=== PATIENT | male | born 1965 | race Caucasian/White ===

== ENCOUNTER 2016-12-20 03:34 | Emergency (ER) | payer SELFPAY ==
[2016-12-20 03:58] VITALS: BMI 28.8
--- NOTE | 2016-12-20 04:18 | PDOC ---
History of Present Illness - General History Source: Patient Exam Limitations: No Limitations - History of Present Illness Initial Comments: 12/20/16 05:03 The patient is a 51-year-old male with a significant past medical history of HTN , and presents to the emergency department with abdominal pain since 10pm last night. He reports the pain is located in the right upper quadrant, and non- radiating. He also reports feeling bloated. He states he has never experienced this type of pain before. He reports he took two laxatives earlier for constipation before the pain started. The patient denies chest pain, shortness of breath, headache and dizziness. The patient denies fever, chills, nausea, vomit, diarrhea. The patient denies dysuria, frequency, urgency and hematuria. Allergies: penicillins Past Surgical History: None reported Social History: former alcohol use <Ambar Gonzalez - Last Filed: 12/20/16 05:03> <Mili Robert - Last Filed: 12/20/16 22:54> - General Chief Complaint: Pain, Acute Stated Complaint: ABDOMINAL PAIN Time Seen by Provider: 12/20/16 04:11 Past History <Ambar Gonzalez - Last Filed: 12/20/16 05:03> - Psycho/Social/Smoking Cessation Hx Suicidal Ideation: No Smoking History: Never smoked Have you smoked in the past 12 months: No Information on smoking cessation initiated: No Hx Alcohol Use: No Drug/Substance Use Hx: No <Mili Robert - Last Filed: 12/20/16 22:54> - Past Medical History Allergies/Adverse Reactions: Allergies Allergy/AdvReac Type Severity Reaction Status Date / Time Penicillins Allergy Verified 12/20/16 03:48 Home Medications: Ambulatory Orders NK [No Known Home Medication] 12/20/16 Review of Systems - Review of Systems Able to Perform ROS?: Yes Comments:: 12/20/16 05:03 CONSTITUTIONAL: Absent: fever, chills, diaphoresis, generalized weakness, malaise, loss of appetite HEENT: Absent: rhinorrhea, nasal congestion, throat pain, throat swelling, difficulty swallowing, mouth swelling, ear pain, eye pain, visual changes CARDIOVASCULAR: Absent: chest pain, syncope, palpitations, irregular heart rate, lightheadedness , peripheral edema RESPIRATORY: Absent: cough, shortness of breath, dyspnea with exertion, orthopnea, wheezing, stridor, hemoptysis GASTROINTESTINAL: Present: (+) abdominal pain, (+) constipation Absent: abdominal distension, nausea, vomiting, diarrhea, melena, hematochezia GENITOURINARY: Absent: dysuria, frequency, urgency, hesitancy, hematuria, flank pain, genital pain MUSCULOSKELETAL: Absent: myalgia, arthralgia, joint swelling SKIN: Absent: rash, itching, pallor HEMATOLOGIC/IMMUNOLOGIC: Absent: easy bleeding, easy bruising, lymphadenopathy, frequent infections ENDOCRINE: Absent: unexplained weight gain, unexplained weight loss, heat intolerance, cold intolerance NEUROLOGIC: Absent: headache, focal weakness or paresthesias, dizziness, unsteady gait, seizure, mental status changes, bladder or bowel incontinence PSYCHIATRIC: Absent: anxiety, depression, suicidal or homicidal ideation, hallucinations. <Ambar Gonzalez - Last Filed: 12/20/16 05:03> *Physical Exam - Vital Signs Last Vital Signs Temp Pulse Resp BP Pulse Ox 98.0 F 82 20 138/84 98 12/20/16 03:48 12/20/16 03:48 12/20/16 03:48 12/20/16 03:48 12/20/16 03:48 - Physical Exam Comments: 12/20/16 05:04 GENERAL: Well developed, well nourished. Awake and alert. No acute distress. HEENT: Normocephalic, atraumatic. PERRLA, EOMI. No conjunctival pallor. Sclera are non- icteric. Moist mucous membranes. Oropharynx is clear. NECK: Supple. Full ROM. No JVD. Carotid pulses 2+ and symmetric, without bruits. No thyromegaly. No lymphadenopathy. CARDIOVASCULAR: Regular rate and rhythm. No murmurs, rubs, or gallops. Distal pulses are 2+ and symmetric. PULMONARY: No evidence of respiratory distress. Lungs clear to auscultation bilaterally. No wheezing, rales or rhonchi. ABDOMINAL: (+) Some tenderness in the right upper quadrant. No rebound or guarding. Soft. Non-distended. No organomegaly. Normoactive bowel sounds. MUSCULOSKELETAL Normal range of motion at all joints. No bony deformities or tenderness. No CVA tenderness. EXTREMITIES: No cyanosis. No clubbing. No edema. No calf tenderness. SKIN: Warm and dry. Normal capillary refill. No rashes. No jaundice. NEUROLOGICAL: Alert, awake, appropriate. Cranial nerves 2-12 intact. No deficits to light touch and temperature in face, upper extremities and lower extremities. No motor deficits in the in face, upper extremities and lower extremities. Normoreflexic in the upper and lower extremities. Normal speech. Toes are down- going bilaterally. Gait is normal without ataxia PSYCHIATRIC: Cooperative. Good eye contact. Appropriate mood and affect. <Ambar Gonzalez - Last Filed: 12/20/16 05:03> - Vital Signs Last Vital Signs Temp Pulse Resp BP Pulse Ox 98.0 F 82 20 138/84 98 12/20/16 03:48 12/20/16 03:48 12/20/16 03:48 12/20/16 03:48 12/20/16 03:48 <Mili Robert - Last Filed: 12/20/16 22:54> ED Treatment Course - LABORATORY CBC & Chemistry Diagram: 12/20/16 04:30 12/20/16 04:30 - ADDITIONAL ORDERS Additional order review: Laboratory Results 12/20/16 04:30 Urine Color Ltyellow Urine Appearance Clear Urine pH 7.0 Urine Protein Negative Urine Glucose (UA) Negative Urine Ketones Negative Urine Blood Negative Urine Nitrite Negative Urine Bilirubin Negative Urine Urobilinogen Negative Ur Leukocyte Esterase Negative 12/20/16 04:30 RBC 4.66 MCV 90.4 MCHC 33.6 RDW 12.8 MPV 12.6 H Neutrophils % 58.9 Lymphocytes % 33.7 Monocytes % 5.6 Eosinophils % 1.0 Basophils % 0.8 - Medications Given in the ED: ED Medications Discontinued Medications Generic Name Dose Route Start Last Admin Trade Name Yangq PRN Reason Stop Dose Admin Acetaminophen 1,000 mg 12/20/16 04:25 12/20/16 04:40 Ofirmev Injection - IVPB 12/20/16 04:26 1,000 mg ONCE ONE Administration Sodium Chloride 1,000 ml 12/20/16 04:25 12/20/16 04:40 Normal Saline - IV 12/20/16 04:26 1,000 ml ONCE ONE Administration <Ambar Gonzalez - Last Filed: 12/20/16 05:03> - LABORATORY CBC & Chemistry Diagram: 12/20/16 04:30 12/20/16 04:30 <Mili Robert - Last Filed: 12/20/16 22:54> Medical Decision Making - Medical Decision Making 12/20/16 05:16 Pt comes with constipation and RUQ pain; he has no fever. He has no PMHx. He denies past surgeries or GB stones or GB problems. Pt has normal CBC and normal UA. Chem pending. On exam pt's pain is limited to the RUQ; rest of exam is normal. Pt will be sent for a sonogram of his RUQ to r/o cholecystits and GB sudge 12/20/16 06:10 Pt's chemistires are normal; LFTs are normal also 12/20/16 07:23 Pt will besigned out to the day ER doc, who will follow the RUQ US this AM. If normal, pt may follow with GI outpatient. <Mili Robert - Last Filed: 12/20/16 22:54> *DC/Admit/Observation/Transfer - Attestations Scribe Attestion: 12/20/16 05:04 Documentation prepared by Ambar Gonzalez, acting as medical assisting program director for Mili Robert MD. <Ambar Gonzalez - Last Filed: 12/20/16 05:03> <Mili Robert - Last Filed: 12/20/16 22:54> Diagnosis at time of Disposition: Cholelithiasis, RUQ pain - Discharge Dispostion Disposition: HOME Condition at time of disposition: Stable - Patient Instructions Printed Discharge Instructions: DI for Gallstones Additional Instructions: You have gallstones but no inflammation or infection of the gallbladder. You may take ibuprofen 600-800 mg every 6-8 hours as needed for the pain. Please do not eat fatty foods as this may exacerbate your symptoms. Please follow-up with your primary care physician within one week and return to the emergency department if your symptoms persist, worsen, or new symptoms arise. Print Language: BURKINAN
[2016-12-20] MEDS ORDERED: ACETAMINOPHEN 1000 MG/100 ML VIAL (NON FORMULARY) IVPB ONE (04:25)
[2016-12-20] MEDS ORDERED: SODIUM CHLORIDE 0.9% 500 ML INFUS.BAG IV ONE (04:25)
[2016-12-20] MEDS ORDERED: ACETAMINOPHEN INJECTION 100 ML IVPB ONE (04:27)
[2016-12-20 04:50] LABS: BASOPHIL 0.8 % (0-2.0); MCH 30.4 pg (25.7-33.7); MCHC 33.6 g/dl (32.0-35.9); MEAN CELL VOLUME 90.4 fl (80-96); MEAN PLT VOLUME 12.6 fl (7.5-11.1); NEUTROPHILS 58.9 % (42.8-82.8); PLATELET COUNT 151 K/MM3 (134-434); RDW 12.8 % (11.9-15.9); WHITE BLOOD COUNT 8.9 K/mm3 (4.0-10.0)
[2016-12-20 04:52] LABS: URINE APPEARANCE CLEAR; URINE BILIRUBIN NEGATIVE (NEGATIVE); URINE BLOOD NEGATIVE (NEGATIVE); URINE COLOR LTYELLOW; URINE GLUCOSE (UA) NEGATIVE (NEGATIVE); URINE KETONE NEGATIVE (NEGATIVE); URINE LEUK ESTERASE NEGATIVE (NEGATIVE); URINE NITRITE NEGATIVE (NEGATIVE); URINE PROTEIN NEGATIVE (NEGATIVE); URINE UROBILINOGEN NEGATIVE E.U./dl (0.2-1.0)
[2016-12-20 05:39] LABS: ALBUMIN 4.2 g/dl (3.4-5.0); ALK PHOS 86 U/L (45-117); AMYLASE 72 U/L (25-115); ANION GAP 13 (8-16); BILIRUBIN,TOTAL 0.5 mg/dL (0.2-1.0); CALCIUM 9.4 mg/dL (8.5-10.1); CO2 29 mmol/L (21-32); COCKROFT - GAULT 86.93; CREATININE 1.2 mg/dL (0.7-1.3); GLUCOSE,RANDOM 153 mg/dL (74-106); SGOT/AST 33 U/L (15-37); SGPT/ALT 73 U/L (12-78); TOT PROT 7.7 g/dl (6.4-8.2)
[2016-12-20] MEDS ORDERED: KETOROLAC TROMETHAMINE 30 MG/1 ML VIAL IVPUSH ONE (06:11)
[2016-12-20] MEDS ORDERED: KETOROLAC TROMETHAMINE 30 MG/1 ML VIAL ONE (06:14)
[2016-12-20 07:21] LABS: PLATELET ESTIMATE ADEQUATE (NORMAL)
--- NOTE | 2016-12-20 09:28 | PDOC ---
*Physical Exam - Vital Signs Last Vital Signs Temp Pulse Resp BP Pulse Ox 98.0 F 82 20 138/84 98 12/20/16 03:48 12/20/16 03:48 12/20/16 03:48 12/20/16 03:48 12/20/16 03:48 ED Treatment Course - LABORATORY CBC & Chemistry Diagram: 12/20/16 04:30 12/20/16 04:30 - ADDITIONAL ORDERS Additional order review: Laboratory Results 12/20/16 12/20/16 04:30 04:30 Sodium 138 Potassium 3.7 Chloride 97 L Carbon Dioxide 29 Anion Gap 13 BUN 19 H Creatinine 1.2 Creat Clearance w eGFR > 60 Random Glucose 153 H Calcium 9.4 Total Bilirubin 0.5 AST 33 ALT 73 Alkaline Phosphatase 86 Total Protein 7.7 Albumin 4.2 Total Amylase 72 Lipase 178 Urine Color Ltyellow Urine Appearance Clear Urine pH 7.0 Urine Protein Negative Urine Glucose (UA) Negative Urine Ketones Negative Urine Blood Negative Urine Nitrite Negative Urine Bilirubin Negative Urine Urobilinogen Negative Ur Leukocyte Esterase Negative 12/20/16 04:30 RBC 4.66 MCV 90.4 MCHC 33.6 RDW 12.8 MPV 12.6 H Neutrophils % 58.9 Lymphocytes % 33.7 Monocytes % 5.6 Eosinophils % 1.0 Basophils % 0.8 - Medications Given in the ED: ED Medications Discontinued Medications Generic Name Dose Route Start Last Admin Trade Name Freq PRN Reason Stop Dose Admin Acetaminophen 1,000 mg 12/20/16 04:25 12/20/16 04:40 Ofirmev Injection - IVPB 12/20/16 04:26 1,000 mg ONCE ONE Administration Ketorolac Tromethamine 30 mg 12/20/16 06:11 12/20/16 06:18 Toradol Injection - IVPUSH 12/20/16 06:12 30 mg ONCE ONE Administration Sodium Chloride 1,000 ml 12/20/16 04:25 12/20/16 04:40 Normal Saline - IV 12/20/16 04:26 1,000 ml ONCE ONE Administration Progress Note - Progress Note Progress Note: This patient was endorsed to me at [address] Poole pending right upper quadrant ultrasound that shows cholelithiasis but no acute cholecystitis or gallbladder wall thickening. I have reevaluated the patient at this time and he is feeling improved and has no abdominal pain at this time. I've explained to the patient that he should follow-up with his primary care physician within one week and return to the emergency department if his symptoms persist, worsen, or new symptoms arise. *DC/Admit/Observation/Transfer Diagnosis at time of Disposition: Cholelithiasis, Right upper quadrant abdominal pain - Discharge Dispostion Disposition: HOME Condition at time of disposition: Stable Admit: No - Patient Instructions Printed Discharge Instructions: DI for Gallstones Additional Instructions: You have gallstones but no inflammation or infection of the gallbladder. You may take ibuprofen 600-800 mg every 6-8 hours as needed for the pain. Please do not eat fatty foods as this may exacerbate your symptoms. Please follow-up with your primary care physician within one week and return to the emergency department if your symptoms persist, worsen, or new symptoms arise. Print Language: SYRIAC
[2016-12-20 09:42] VITALS: BP 124/79; PULSE 70; TEMP 98.3
== END 2016-12-20 09:42 | disposition home or self-care (01) ==
LOC: JER 03:34
PROC: 3E0333Z Introduction of Anti-inflammatory into Peripheral Vein, Percutaneous Approach (ICD-10-PCS; principal; 2016-12-20)
DX: K80.20 Calculus of gallbladder without cholecystitis without obstruction (principal)
CPT/HCPCS: 36415; 71020-TC; 74020-TC; 76705-TC; 80053; 81003; 82150; 83690; 85025; 99283-25

== ENCOUNTER 2017-09-11 22:18 | Inpatient (IN) | payer OTHER ==
--- NOTE | 2017-09-11 23:22 | PDOC ---
History of Present Illness - General History Source: Patient Exam Limitations: No Limitations - History of Present Illness Initial Comments: 09/11/17 23:46 The patient is a 52 year old male, with a significant past medical history of gallstones, who presents to the emergency department with, 9.5 hours of right upper quadrant pain. He describes the pain as constant and non resolving. The patient reports similar symptoms before. He reports his last flare up was 2 weeks ago ,however, he did not see a surgeon. He denies any recent fevers, chills, headache or dizziness. He denies any recent nausea, vomit, diarrhea or constipation. He denies any recent chest pain or shortness of breath. He denies any recent dysuria, frequency, urgency or hematuria. Allergies: NKA <Montana Ayala - Last Filed: 09/11/17 23:46> <Michell Baird - Last Filed: 09/12/17 20:54> <Mili Robert - Last Filed: 09/13/17 03:38> - General Chief Complaint: Pain Stated Complaint: UPPER ABDOMINAL PAIN Time Seen by Provider: 09/11/17 23:19 Past History <Montana Ayala - Last Filed: 09/11/17 23:46> - Past Medical History COPD: No HTN: Yes - Suicide/Smoking/Psychosocial Hx Smoking History: Never smoked Have you smoked in the past 12 months: No Information on smoking cessation initiated: No Hx Alcohol Use: No Drug/Substance Use Hx: No Substance Use Type: None <Michell Baird - Last Filed: 09/12/17 20:54> <Mili Robert - Last Filed: 09/13/17 03:38> - Past Medical History Allergies/Adverse Reactions: Allergies Allergy/AdvReac Type Severity Reaction Status Date / Time No Known Allergies Allergy Verified 09/11/17 22:32 Home Medications: Ambulatory Orders Amoxicillin/Potassium Clav [Augmentin 875-125 Tablet] 1 each PO Q12H #11 tablet 09/12/17 Hydrochlorothiazide 25 mg PO DAILY 09/12/17 Review of Systems - Review of Systems Able to Perform ROS?: Yes Comments:: 09/11/17 23:40 GENERAL/CONSTITUTIONAL: No fever or chills. No weakness. HEAD, EYES, EARS, NOSE AND THROAT: No change in vision. No ear pain or discharge. No sore throat. CARDIOVASCULAR: No chest pain or shortness of breath. RESPIRATORY: No cough, wheezing, or hemoptysis. GASTROINTESTINAL: +Right upper quadrant pain. No nausea, vomiting, diarrhea or constipation. GENITOURINARY: No dysuria, frequency, or change in urination. MUSCULOSKELETAL: No joint or muscle swelling or pain. No neck or back pain. SKIN: No rash NEUROLOGIC: No headache, vertigo, loss of consciousness, or change in strength/ sensation. ENDOCRINE: No increased thirst. No abnormal weight change. HEMATOLOGIC/LYMPHATIC: No anemia, easy bleeding, or history of blood clots. ALLERGIC/IMMUNOLOGIC: No hives or skin allergy. All Other Systems: Reviewed and Negative <Montana Ayala - Last Filed: 09/11/17 23:46> *Physical Exam - Vital Signs Last Vital Signs Temp Pulse Resp BP Pulse Ox 98.0 F 60 18 151/89 99 09/11/17 22:32 09/11/17 22:32 09/11/17 22:32 09/11/17 22:32 09/11/17 22:32 <Montana Ayala - Last Filed: 09/11/17 23:46> - Vital Signs Last Vital Signs Temp Pulse Resp BP Pulse Ox 98.0 F 60 18 151/89 99 09/11/17 22:32 09/11/17 22:32 09/11/17 22:32 09/11/17 22:32 09/11/17 22:32 - Physical Exam Comments: GENERAL: Awake, alert, and fully oriented, in no acute distress HEAD: No signs of trauma EYES: PERRLA, EOMI, sclera anicteric, conjunctiva clear ENT: Auricles normal inspection, hearing grossly normal, nares patent, oropharynx clear without exudates. Moist mucosa NECK: Normal ROM, supple, no lymphadenopathy, JVD, or masses LUNGS: Breath sounds equal, clear to auscultation bilaterally. No wheezes, and no crackles HEART: Regular rate and rhythm, normal S1 and S2, no murmurs, rubs or gallops ABDOMEN: Soft, +RUQ tenderness, normoactive bowel sounds. +Guarding, no rebound. No masses EXTREMITIES: Normal range of motion, no edema. No clubbing or cyanosis. No cords, erythema, or tenderness NEUROLOGICAL: Cranial nerves II through XII grossly intact. Normal speech, normal gait SKIN: Warm, Dry, normal turgor, no rashes or lesions noted. <Michell Baird - Last Filed: 09/12/17 20:54> - Vital Signs Last Vital Signs Temp Pulse Resp BP Pulse Ox 98.0 F 60 18 151/89 99 09/11/17 22:32 09/11/17 22:32 09/11/17 22:32 09/11/17 22:32 09/11/17 22:32 <Mili Robert - Last Filed: 09/13/17 03:38> ED Treatment Course - LABORATORY CBC & Chemistry Diagram: 09/11/17 23:30 09/11/17 23:30 <Montana Ayala - Last Filed: 09/11/17 23:46> - LABORATORY CBC & Chemistry Diagram: 09/12/17 07:00 09/12/17 07:00 <Michell Baird - Last Filed: 09/12/17 20:54> - LABORATORY CBC & Chemistry Diagram: 09/12/17 07:00 09/12/17 07:00 - ADDITIONAL ORDERS Additional order review: Laboratory Results 09/11/17 09/11/17 09/11/17 23:30 23:30 23:30 PT with INR 12.10 H INR 1.07 Sodium 138 Potassium 4.3 Chloride 100 Carbon Dioxide 27 Anion Gap 11 BUN 13 D Creatinine 1.0 Creat Clearance w eGFR > 60 Random Glucose 136 H Calcium 9.3 Total Bilirubin 0.7 D AST 32 ALT 51 D Alkaline Phosphatase 96 Total Protein 8.7 H Albumin 4.4 Lipase 146 Blood Type A POSITIVE Antibody Screen Negative 09/11/17 23:30 RBC 4.92 MCV 89.9 MCHC 33.7 RDW 12.6 MPV 11.7 H Neutrophils % 76.7 D Lymphocytes % 18.8 D Monocytes % 3.5 L Eosinophils % 0.3 Basophils % 0.7 - Medications Given in the ED: ED Medications Discontinued Medications Generic Name Dose Route Start Last Admin Trade Name Freq PRN Reason Stop Dose Admin Sodium Chloride 1,000 mls @ 1,000 mls/hr 09/11/17 23:29 09/11/17 23:41 Normal Saline - IV 09/12/17 00:28 1,000 mls/hr ASDIR STA Administration Morphine Sulfate 4 mg 09/11/17 23:29 09/11/17 23:41 Morphine Injection - IVPUSH 09/11/17 23:30 4 mg ONCE ONE Administration Ondansetron HCl 4 mg 09/11/17 23:29 09/11/17 23:42 Zofran Injection IVPUSH 09/11/17 23:30 4 mg ONCE ONE Administration <Mili Robert - Last Filed: 09/13/17 03:38> Medical Decision Making - Medical Decision Making 09/12/17 02:[address] Robert at shift change. High suspicion for acute shanell, awaiting sono results. Likely admission. <Michell Baird - Last Filed: 09/12/17 20:54> - Medical Decision Making 09/12/17 02:43 Patient Name: BRETT LOYA THIS IS A PRELIMINARY REPORT FROM [facility] DATE OF SERVICE: 2017-09-12 00:50:29 IMAGES: 56 EXAM: Ultrasound abdomen limited, right upper quadrant and the abdominal duplex HISTORY: Rule out cholecystitis COMPARISON: None. FINDINGS: Right upper quadrant ultrasound:The liver is mildly fatty, without mass or biliary duct dilation. There is a non-mobile stone in the gallbladder neck with a positive sonographic Rivera sign and borderline gallbladder wall thickening at 3.6 mm. Findings are moderately to highly suspicious for cholecystitis. The CBD is borderline dilated and measures7 millimeters in diameter. Right kidney measures 10.8centimeters in length and is unremarkable. The visualized aorta and IVC are normal. Pancreas is partially obscured, but appears normal. Abdominal duplex: The main portal vein demonstrates normal hepatopedal flow. IMPRESSION: Moderate to high suspicion of cholecystitis which could be due to a stone impacted in the gallbladder neck. Mildly fatty liver. THIS DOCUMENT HAS BEEN ELECTRONICALLY SIGNED 09/13/17 03:38 Pt was admitted. <Mili Robert - Last Filed: 09/13/17 03:38> *DC/Admit/Observation/Transfer - Attestations Scribe Attestion: 09/11/17 23:40 Documentation prepared by [place] Ayala, acting as medical instrument cable fabricator for Michell Baird MD. <[place] Ayala - Last Filed: 09/11/17 23:46> <Michell Baird - Last Filed: 09/12/17 20:54> - Discharge Dispostion Admit: Yes <Mili Robert - Last Filed: 09/13/17 03:38> Diagnosis at time of Disposition: Cholecystitis Cholelithiasis Qualifiers: Cholelithiasis location: gallbladder and bile duct Cholecystitis presence: with cholecystitis Cholecystitis acuity: unspecified acuity Biliary obstruction : with biliary obstruction Qualified Code(s): K80.61 - Calculus of gallbladder and bile duct with cholecystitis, unspecified, with obstruction - Discharge Dispostion Disposition: HOME Condition at time of disposition: Improved
[2017-09-11] MEDS ORDERED: morphine CARPU-JECT 4 MG/1 ML DISP.SYRIN IVPUSH ONE (23:29)
[2017-09-11] MEDS ORDERED: SODIUM CHLORIDE 1,000 ML IV STA (23:29)
[2017-09-11] MEDS ORDERED: ONDANSETRON 4 MG/2 ML VIAL IVPUSH ONE (23:29)
[2017-09-11] MEDS ORDERED: ONDANSETRON 4 MG/2 ML VIAL ONE (23:35)
[2017-09-11] MEDS ORDERED: MORPHINE SULFATE 10 MG/1 ML *VIAL ONE (23:35)
[2017-09-11 23:38] LABS: BASO % 0.7 % (0-2.0); EOS % 0.3 % (0-4.5); HEMATOCRIT 44.2 % (35.4-49); HEMOGLOBIN 14.9 GM/dL (11.7-16.9); LYMPH % 18.8 % (8-40); MCH 30.3 pg (25.7-33.7); MCHC 33.7 g/dl (32.0-35.9); MEAN CELL VOLUME 89.9 fl (80-96); MEAN PLT VOLUME 11.7 fl (7.5-11.1); MONO % 3.5 % (3.8-10.2); NEUT % 76.7 % (42.8-82.8); PLATELET COUNT 169 K/MM3 (134-434); RBC 4.92 M/mm3 (4.00-5.60); RDW 12.6 % (11.9-15.9); WHITE BLOOD COUNT 8.5 K/mm3 (4.0-10.0)
[2017-09-12 00:02] LABS: INR 1.07 (0.82-1.09); PROTHROMBIN TIME (PATIENT) 12.1 SEC (9.98-11.88)
[2017-09-12 00:12] LABS: ALBUMIN 4.4 g/dl (3.4-5.0); ALK PHOS 96 U/L (45-117); ANION GAP 11 (8-16); BILIRUBIN,TOTAL 0.7 mg/dL (0.2-1.0); BLOOD UREA NITROGEN 13 mg/dL (7-18); CALCIUM 9.3 mg/dL (8.5-10.1); CHLORIDE 100 mmol/L (98-107); CO2 27 mmol/L (21-32); GLUCOSE,RANDOM 136 mg/dL (74-106); LIPASE 146 U/L (73-393); SGPT/ALT 51 U/L (12-78); SODIUM 138 mmol/L (136-145); TOT PROT 8.7 g/dl (6.4-8.2)
[2017-09-12 00:14] LABS: POTASSIUM 4.3 mmol/L (3.5-5.1)
[2017-09-12 00:15] LABS: SGOT/AST 32 U/L (15-37)
[2017-09-12] MEDS ORDERED: ONDANSETRON 4 MG/2 ML VIAL IVPUSH PRN (03:24)
[2017-09-12] MEDS ORDERED: SODIUM CHLORIDE 1,000 ML IV SCH (03:30)
--- NOTE | 2017-09-12 03:30 | HP ---
CHIEF COMPLAINT: abdominal pain PCP: Dr. Alexander Cortez HISTORY OF PRESENT ILLNESS: 52 year old male with a history of hypertension and cholelithiasis presents to the emergency room for severe, non-radiating RUQ pain of 1 day duration. He states the pain began around 2pm after he ate a normal meal which he reports included a lot of rice. He has been seen in the emergency room for similar symptoms in December of 2016. Since then, patient has had several episodes every couple of weeks, with the last one being 2 weeks ago. He states he had 2 episodes of non-bloody, non-bilious vomiting since 2pm today. Denies diarrhea, chest pain, SOB, fevers, or chills. Upon examination of the patient, he feels better than he did when he first entered the emergency room with decreased pain. ER course was notable for: (1) US positive for cholecystitis (2) WBC 8.5 (3) afebrile Recent Travel: none PAST MEDICAL HISTORY: hypertension, cholelithiasis PAST SURGICAL HISTORY: never Social History: Smoking: former smoker > 20 years ago Alcohol: never Drugs: never Family History: Allergies No Known Allergies Allergy (Verified 09/11/17 22:32) HOME MEDICATIONS: Home Medications Medication Instructions Recorded NK [No Known Home Medication] 12/20/16 REVIEW OF SYSTEMS CONSTITUTIONAL: Absent: fever, chills, diaphoresis, generalized weakness, malaise, loss of appetite, weight change HEENT: Absent: rhinorrhea, nasal congestion, throat pain, throat swelling, difficulty swallowing, mouth swelling, ear pain, eye pain, visual changes CARDIOVASCULAR: Absent: chest pain, syncope, palpitations, irregular heart rate, lightheadedness , peripheral edema RESPIRATORY: Absent: cough, shortness of breath, dyspnea with exertion, orthopnea, wheezing, stridor, hemoptysis GASTROINTESTINAL:abdominal pain Absent: , abdominal distension, nausea, vomiting, diarrhea, constipation, melena , hematochezia GENITOURINARY: Absent: dysuria, frequency, urgency, hesitancy, hematuria, flank pain, genital pain MUSCULOSKELETAL: Absent: myalgia, arthralgia, joint swelling, back pain, neck pain SKIN: Absent: rash, itching, pallor HEMATOLOGIC/IMMUNOLOGIC: Absent: easy bleeding, easy bruising, lymphadenopathy, frequent infections ENDOCRINE: Absent: unexplained weight gain, unexplained weight loss, heat intolerance, cold intolerance NEUROLOGIC: Absent: headache, focal weakness or paresthesias, dizziness, unsteady gait, seizure, mental status changes, bladder or bowel incontinence PSYCHIATRIC: Absent: anxiety, depression, suicidal or homicidal ideation, hallucinations. PHYSICAL EXAMINATION Vital Signs - 24 hr 09/11/17 22:32 Temperature 98.0 F Pulse Rate 60 Respiratory 18 Rate Blood Pressure 151/89 O2 Sat by Pulse 99 Oximetry (%) GENERAL: A&Ox3, no acute distress EYES: PERRLA, EOMI ENT: oropharynx normal LUNGS: CTA b/l, no wheezes or rhonchi HEART: RRR, no murmurs ABDOMEN: Soft, mildly tender to palpation in the RUQ, BS present, normoactive bowel sounds, no guarding, no rebound, no masses. MUSCULOSKELETAL: Normal ROM. 2+ pulses b/l upper and lower extremities NEUROLOGICAL: Cranial nerves II-XII intact. PSYCHIATRIC: Cooperative. Good eye contact. Appropriate mood and affect. SKIN: Warm, dry, normal turgor, no rashes or lesions noted, normal capillary refill. Laboratory Results - last 24 hr 09/11/17 09/11/17 09/11/17 23:30 23:30 23:30 WBC 8.5 RBC 4.92 Hgb 14.9 Hct 44.2 MCV 89.9 MCH 30.3 MCHC 33.7 RDW 12.6 Plt Count 169 MPV 11.7 H Neutrophils % 76.7 D Lymphocytes % 18.8 D Monocytes % 3.5 L Eosinophils % 0.3 Basophils % 0.7 PT with INR 12.10 H INR 1.07 Sodium 138 Potassium 4.3 Chloride 100 Carbon Dioxide 27 Anion Gap 11 BUN 13 D Creatinine 1.0 Creat Clearance w eGFR > 60 Random Glucose 136 H Calcium 9.3 Total Bilirubin 0.7 D AST 32 ALT 51 D Alkaline Phosphatase 96 Total Protein 8.7 H Albumin 4.4 Lipase 146 Blood Type Antibody Screen 09/11/17 23:30 WBC RBC Hgb Hct MCV MCH MCHC RDW Plt Count MPV Neutrophils % Lymphocytes % Monocytes % Eosinophils % Basophils % PT with INR INR Sodium Potassium Chloride Carbon Dioxide Anion Gap BUN Creatinine Creat Clearance w eGFR Random Glucose Calcium Total Bilirubin AST ALT Alkaline Phosphatase Total Protein Albumin Lipase Blood Type A POSITIVE Antibody Screen Negative Current Medications Heparin Sodium (Porcine) (Heparin -) 5,000 unit SQ Q8H-IV RAMILA Sodium Chloride (Normal Saline -) 1,000 mls @ 100 mls/hr IV ASDIR RAMILA Ondansetron HCl (Zofran Injection) 4 mg IVPUSH Q6H PRN PRN Reason: NAUSEA IMAGING: US Abd (From Imaging principal automation engineer): Right upper quadrant ultrasound:The liver is mildly fatty, without mass or biliary duct dilation. There is a non-mobile stone in the gallbladder neck with a positive sonographic Rivera sign and borderline gallbladder wall thickening at 3.6 mm. Findings are moderately to highly suspicious for cholecystitis. The CBD is borderline dilated and measures7 millimeters in diameter. Right kidney measures 10.8centimeters in length and is unremarkable. The visualized aorta and IVC are normal. Pancreas is partially obscured, but appears normal. Abdominal duplex: The main portal vein demonstrates normal hepatopedal flow. IMPRESSION: Moderate to high suspicion of cholecystitis which could be due to a stone impacted in the gallbladder neck. Mildly fatty liver. ASSESSMENT/PLAN: 52 year old male with a past medical history of hypertension and cholelithiasis presents to the ED with abdominal pain and is admitted for the treatment of acute cholecystitis #Acute Cholecystitis: patient's pain has improved compared to when he first presented; US findings as listed above -keep NPO for now -lipase normal -IVF hydration NS @ 100 cc/hr -zofran for nausea -Dr. Jorge Murray consultation appreciated -EKG to r/o ACS -no need for abx as it is uncomplicated cholecystitis without peritoneal symptoms or signs of infection #Hypertension: mildly hypertensive -patient does not remember home medication for HTN, will need to confirm medications in the AM -Patient goes to [facility] #FEN -IVF hydration @ 100cc/hr -replete lytes in AM #Prophylaxis -heparin 5000 subq TID #Disposition -Admit to med-surg Visit type - Emergency Visit Emergency Visit: Yes ED Registration Date: 09/12/17 Care time: The patient presented to the Emergency Department on the above date and was hospitalized for further evaluation of their emergent condition. - New Patient This patient is new to me today: Yes Date on this admission: 09/12/17 - Critical Care Critical Care patient: No Hospitalist Screening - Colonoscopy Questionnaire Colonoscopy Questionnaire: Colonoscopy Questionnaire - Patient: 50 - 75 years old and never had a screening colonoscopy: Unknown History of colon or rectal polyps, or CA: Unknown History of IBD, Crohn's disease or UC: Unknown History of abdominal radiation therapy as a child: Unknown - Relative: 1 with colon or rectal CA, or polyps at age 60 or younger: Unknown Colon or rectal CA diagnosed at age 45 or younger: Unknown Multiple relatives with colon or rectal CA: Unknown - Outcome: Screening Result: Negative Screen
--- NOTE | 2017-09-12 05:34 | PN ---
Teaching Attending Note Name of Resident: Emerson Rain ATTENDING PHYSICIAN STATEMENT I saw and evaluated the patient. Chart, data, imaging reviewed. I reviewed the resident's note and discussed the case with the resident. I agree with the resident's findings and plan as documented. SUBJECTIVE: 52 year old male, with a significant past medical history of gallstones, who presented with right upper quadrant pain which started 09/11 and lasted up to 10 hours. Pain worse after meals. Had similar symptoms previously. No fevers. Previously was experiencing vomiting episodes which resolved. OBJECTIVE: Last Vital Signs Temp Pulse Resp BP Pulse Ox 97.7 F 77 18 131/62 98 09/12/17 04:50 09/12/17 04:50 09/11/17 22:32 09/12/17 04:50 09/12/17 04:50 general- nad, pleasant chest- cta b/l cv-s1+S2+ RRR abdomen- epigastric tenderness skin - no rashes Abnormal Lab Results 09/11/17 09/11/17 09/11/17 23:30 23:30 23:30 MPV 11.7 H Monocytes % 3.5 L PT with INR 12.10 H Random Glucose 136 H Total Protein 8.7 H US of gallbladder- c/w stone in gallbladder neck, wall thickening c/w cholecystitis ASSESSMENT AND PLAN: #Acute cholecystitis on imaging with no signs of systemic infection. -admit to observation -surgery consult -pain managament -NPO -zofran PRN for nausea or vomiting -IV fluid hydration -no antibiotics at this time #DVT ppx -heparin sc
[2017-09-12 06:26] VITALS: BMI 29.0
[2017-09-12] MEDS: HEPARIN NA (PORCINE) 5,000 UNITS/ML 1ML VIAL SQ SCH ×2 (06:39→15:26)
[2017-09-12 07:31] LABS: HEMATOCRIT 40.2 % (35.4-49); HEMOGLOBIN 13.4 GM/dL (11.7-16.9); MCH 30.2 pg (25.7-33.7); MCHC 33.2 g/dl (32.0-35.9); MEAN CELL VOLUME 90.9 fl (80-96); MEAN PLT VOLUME 11.2 fl (7.5-11.1); PLATELET COUNT 153 K/MM3 (134-434); RBC 4.42 M/mm3 (4.00-5.60); RDW 12.9 % (11.9-15.9); WHITE BLOOD COUNT 8.6 K/mm3 (4.0-10.0)
[2017-09-12 08:00] LABS: ALBUMIN 3.7 g/dl (3.4-5.0); ANION GAP 6 (8-16); BLOOD UREA NITROGEN 12 mg/dL (7-18); CHLORIDE 106 mmol/L (98-107); CO2 28 mmol/L (21-32); GLUCOSE,RANDOM 90 mg/dL (74-106); MAGNESIUM 2.2 mg/dL (1.8-2.4); POTASSIUM 4.2 mmol/L (3.5-5.1); SODIUM 140 mmol/L (136-145)
[2017-09-12 08:04] LABS: ALK PHOS 78 U/L (45-117); BILIRUBIN,TOTAL 0.9 mg/dL (0.2-1.0); CREATININE 0.9 mg/dL (0.7-1.3); PHOSPHOROUS 2.8 mg/dL (2.5-4.9); SGOT/AST 14 U/L (15-37); SGPT/ALT 34 U/L (12-78); TOT PROT 6.9 g/dl (6.4-8.2)
[2017-09-12] MEDS ORDERED: CEFTRIAXONE 1 G/50 ML PREMIX 50 ML IVPB ONE (09:15)
--- NOTE | 2017-09-12 09:20 | PN ---
Progress Note (short form) - Note Progress Note: Subjective: no fever or chills, minimal abd pain in RUQ. no N/V Objective: Vital Signs: Last Vital Signs Temp Pulse Resp BP Pulse Ox 97.1 F L 62 18 118/82 98 09/12/17 06:14 09/12/17 06:14 09/12/17 06:14 09/12/17 06:14 09/12/17 04:50 Laboratory Results - last 24 hr 09/11/17 09/11/17 09/11/17 23:30 23:30 23:30 WBC 8.5 RBC 4.92 Hgb 14.9 Hct 44.2 MCV 89.9 MCH 30.3 MCHC 33.7 RDW 12.6 Plt Count 169 MPV 11.7 H Neutrophils % 76.7 D Lymphocytes % 18.8 D Monocytes % 3.5 L Eosinophils % 0.3 Basophils % 0.7 PT with INR 12.10 H INR 1.07 Sodium 138 Potassium 4.3 Chloride 100 Carbon Dioxide 27 Anion Gap 11 BUN 13 D Creatinine 1.0 Creat Clearance w eGFR > 60 Random Glucose 136 H Calcium 9.3 Phosphorus Magnesium Total Bilirubin 0.7 D AST 32 ALT 51 D Alkaline Phosphatase 96 Total Protein 8.7 H Albumin 4.4 Lipase 146 Blood Type Antibody Screen 09/11/17 09/12/17 09/12/17 23:30 07:00 07:00 WBC 8.6 RBC 4.42 Hgb 13.4 D Hct 40.2 MCV 90.9 MCH 30.2 MCHC 33.2 RDW 12.9 Plt Count 153 MPV 11.2 H Neutrophils % Lymphocytes % Monocytes % Eosinophils % Basophils % PT with INR INR Sodium 140 Potassium 4.2 Chloride 106 Carbon Dioxide 28 Anion Gap 6 L BUN 12 Creatinine 0.9 Creat Clearance w eGFR > 60 Random Glucose 90 D Calcium 8.0 L Phosphorus 2.8 Magnesium 2.2 Total Bilirubin 0.9 D AST 14 L D ALT 34 D Alkaline Phosphatase 78 Total Protein 6.9 D Albumin 3.7 Lipase Blood Type A POSITIVE Antibody Screen Negative Physical Exam: NAD, AAOX3, cooperative and pleasant . MMM, no LAP in neck CV: RRR, No MRG Lungs: CTAB ABd: soft, ND, minimal tenderness in RUQ. Neg Rivera's Extno edema Imaging: US prelim report reviewed. Assessment/Plan: 52 y/o man with h/o cholelithiasis and HTN who presented with RUQ pain. HE was found to have gall stones and signs of cholecystitis 1- High suspicion for acute cholecystitis: given duration of his pain x 10 hours ( now much improved), and radiological findings. - Start ceftriaxone and flagyl - repeat LFTS - since LFTS are nl, and CBD is only 7 mm per prelim report, suspicion for impacted CBD stones is very low. No need for MRCP. - IVF - NPO - surgical eval for CCY - await final US report 2- HTN: takes HCTZ 25 mg daily - hold while hydrating - start low dose norvasc in mean time 3- DVT PX . Visit type - Emergency Visit Emergency Visit: Yes ED Registration Date: 09/12/17 Care time: The patient presented to the Emergency Department on the above date and was hospitalized for further evaluation of their emergent condition. - New Patient This patient is new to me today: Yes Date on this admission: 09/12/17 - Critical Care Critical Care patient: No
[2017-09-12] MEDS ORDERED: amLODIPine BESYLATE 2.5 MG TABLET (FP) PO SCH (10:00)
--- NOTE | 2017-09-12 10:17 | PN ---
Progress Note (short form) - Note Progress Note: surgery pt seen and examined. full consult dictated. 52m with known symptomatic cholelithiasis presents with resoved 8 hours ruq pain. Pt treated with npo and rocephin flagyl. u/s shows possible impacted gallstone. labs normal x 2. on exam abd is soft, nt Plan- chronic cholecystitis with improving acute episode. suggest trial of low fat diet and elective choleycystectomy if tolerates. if unable to tolerate food would plan for surgery this admission. on dishcarge would give 5 days augmentin to completed abx course. [phone]
[2017-09-12 14:55] VITALS: BP 119/68; PULSE 61; TEMP 98.1
--- NOTE | 2017-09-12 18:34 | EKG ---
Test Reason : Blood Pressure : / mmHG Vent. Rate : 060 BPM Atrial Rate : 060 BPM P-R Int : 146 ms QRS Dur : 086 ms QT Int : 428 ms P-R-T Axes : 055 018 021 degrees QTc Int : 428 ms NORMAL SINUS RHYTHM NORMAL ECG NO PREVIOUS ECGS AVAILABLE Confirmed by MD SAMEERA, MANOJ ([id number]) on 09/12/2017 6:34:04 PM Referred By: Confirmed By:MANOJ BRASHER MD
--- NOTE | 2017-09-12 19:21 | CONS ---
DATE OF CONSULTATION: 09/12/2017 REASON FOR CONSULTATION: Acute cholecystitis, cholelithiasis. This is an inpatient consultation at the request of the hospitalist service. BRIEF HISTORY: This is a 52-year-old male with past medical history of symptomatic cholelithiasis as well as hypertension. He states that for the past several months he has had a fatty food intolerance and was diagnosed with gallstones at that time. He presented to [facility] emergency room with 8-hour history of right upper quadrant abdominal pain without nausea or vomiting. The pain has subsequently resolved. He was admitted, placed on Rocephin and Flagyl antibiotic, and made n.p.o. Request is made for surgical evaluation. His past medical history is as in [facility]. His past surgical history is nil. Social history is negative for alcohol, negative tobacco. He has no known drug allergies. He takes no medications. His family history is negative for malignancy in the immediate family. REVIEW OF SYSTEMS: General: Denies fatigue or malaise. Cardiac: Denies chest pain or palpitations. Respiratory: No shortness of breath or wheeze. Gastrointestinal: As in HPI. Genitourinary: Denies dysuria. Musculoskeletal: Denies joint pain, joint swelling. Psychiatric: Denies anxiety, depression, or hearing voices. PHYSICAL EXAMINATION: General: This is a well-developed, well-nourished, 52-year-old male in no distress. Vital Signs: He is afebrile. His vital signs are stable. HEENT: His head is normocephalic. His sclerae are anicteric. Neck: Supple. Chest: Clear. Abdomen: Soft. Nontender, nondistended. No surgical scars. Extremities: His extremities have no edema. On review of his laboratories, white blood cell count is normal at 8.6. He does not have a shift. His chemistries are unremarkable, with normal liver function tests as well as lipase. His imaging is as in HPI. ASSESSMENT: A 52-year-old male with resolved right upper quadrant pain, known symptomatic cholelithiasis, and ultrasound showing an impacted stone in the neck of his gallbladder. Clinically this is chronic cholecystitis with a possible mild acute attack that responded well to medical management, versus a protracted biliary colic episode. In either event, the patient clinically is well and is hungry and wishes to go home. At this point, would give a trial of low-fat diet. If he tolerates, would discharge home with a 5-day course of Augmentin to complete the antibiotic therapy. Can also consider some pain pills as well for further attacks. Patient should strongly consider elective cholecystectomy and he is contemplating that. He can follow with me in my office to make arrangements. If he is unable to tolerate food, then would be unable to safely discharge him, and will make arrangements for cholecystectomy as an inpatient this week. Would want to confirm acute cholecystitis with HIDA scan prior to operating in that event. DO ANTONIETA STROUD/[id number]
--- NOTE | 2017-09-13 07:52 | DS ---
Physical Exam: LABS Laboratory Results - last 24 hr 09/12/17 07:00 Sodium 140 Potassium 4.2 Chloride 106 Carbon Dioxide 28 Anion Gap 6 L BUN 12 Creatinine 0.9 Creat Clearance w eGFR > 60 Random Glucose 90 D Calcium 8.0 L Phosphorus 2.8 Magnesium 2.2 Total Bilirubin 0.9 D AST 14 L D ALT 34 D Alkaline Phosphatase 78 Total Protein 6.9 D Albumin 3.7 IMAGING: US Abd (From Imaging mathematics education professor): Right upper quadrant ultrasound:The liver is mildly fatty, without mass or biliary duct dilation. There is a non-mobile stone in the gallbladder neck with a positive sonographic Rivera sign and borderline gallbladder wall thickening at 3.6 mm. Findings are moderately to highly suspicious for cholecystitis. The CBD is borderline dilated and measures7 millimeters in diameter. Right kidney measures 10.8centimeters in length and is unremarkable. The visualized aorta and IVC are normal. Pancreas is partially obscured, but appears normal. Abdominal duplex: The main portal vein demonstrates normal hepatopedal flow. IMPRESSION: Moderate to high suspicion of cholecystitis which could be due to a stone impacted in the gallbladder neck. Mildly fatty liver. HOSPITAL COURSE: Date of Admission:09/12/17 52 year old male with a past medical history of hypertension and cholelithiasis presents to the ED with severe, non-radiating RUQ pain of 1 day duration. He stated the pain began around 2pm after he ate a normal meal which he reports included a lot of rice. He has been seen in the emergency room for similar symptoms in December of 2016. Since then, patient has had several episodes every couple of weeks, with the last one being 2 weeks ago. He stated he had 2 episodes of non-bloody, non-bilious vomiting since 2pm today. Denied diarrhea, chest pain, SOB, fevers, or chills. Patient had ultrasound abdomen done with results listed above. He was afebrile and had a WBC of 8.5. Patient was admitted for acute cholecystitis. He was kept NPO and given hydration with normal saline. Antibiotics were not started as it was an uncomplicated cholecystitis without peritoneal symptoms or signs of infection. Surgery consult was placed. Surgery recommended trial of low-fat/low cholesterol diet and if so, an outpatient regimen of augmentin. Patient was able to tolerate diet and was discharged on PO augmentin for 5 days. Date of Discharge: 09/13/17 Minutes to complete discharge: 35 Discharge Summary Reason For Visit: CHOLECYSTITIS/RIGHT UPPER QUADRANT ABDOMINAL PAIN Condition: Improved - Instructions Diet, Activity, Other Instructions: please follow with Dr. Law for evaluation as you need your gall bladder out please takelow fat diet any fever , or chills, or abd pain recurrence , come back to ER. it is important to follow with a surgeon follow with your PCP continue your blood pressure medication follow with your primary care doctor . in 1 week take antibiotics ( augmentin ) for 5 days . start tomorrow am. Referrals: Johnathon Cruz MD [Staff Physician] - ON STAFF,NOT [Primary Care Provider] - Emerson Law MD [Staff Physician] - Disposition: HOME - Home Medications Comprehensive Discharge Medication List: Ambulatory Orders Amoxicillin/Potassium Clav [Augmentin 875-125 Tablet] 1 each PO Q12H #11 tablet 09/12/17 Hydrochlorothiazide 25 mg PO DAILY 09/12/17 This patient is new to me today: No Emergency Visit: No Critical Care patient: No - Discharge Referral Referred to [facility] No
[2017-09-13] MEDS ORDERED: CEFTRIAXONE 1 G/50 ML PREMIX 50 ML IVPB SCH (10:00)
== END 2017-09-12 17:00 | disposition home or self-care (01) ==
LOC: JER 22:18 → JERBED 09-12 02:53 → UNDOADMIN 09-12 02:57 → J5S 09-12 06:01
PROVIDERS: ADMIT Internal Medicine; ATTEND Internal Medicine
DX: K80.00 Calculus of gallbladder with acute cholecystitis without obstruction (principal); I10 Essential (primary) hypertension; Z87.891 Personal history of nicotine dependence; K76.0 Fatty (change of) liver, not elsewhere classified
CPT/HCPCS: 36415; 71046-TC-FY; 76705-TC; 80053; 83690; 83735; 84100; 85025; 85027; 85610; 86850; 86900; 86901; 93005; 93010; 99283-25; J1644

== ENCOUNTER 2017-10-13 06:07 | Day surgery (SDC) | payer OTHER ==
[2017-10-12 12:00] VITALS: BMI 29.1
[2017-10-13] MEDS ORDERED: ERTAPENEM SODIUM 1 GM VIAL ONE (06:40)
[2017-10-13] MEDS ORDERED: TAMSULOSIN HCL 0.4 MG CAP.ER.24H (FP) ONE (06:40)
[2017-10-13] MEDS ORDERED: MIDAZOLAM HCL 2 MG/2 ML SINGLE DOSE VIAL ONE (07:58)
[2017-10-13] MEDS ORDERED: ROCURONIUM BROMIDE 50 MG/5 ML VIAL ONE ×2 (07:59→08:55)
[2017-10-13] MEDS ORDERED: PROPOFOL 20 ML ONE (07:59)
[2017-10-13] MEDS ORDERED: ONDANSETRON 4 MG/2 ML VIAL IVPUSH PRN ×2 (08:04→08:16)
[2017-10-13] MEDS ORDERED: LACTATED RINGERS SOLUTION 1,000 ML IV SCH (08:15)
[2017-10-13] MEDS ORDERED: morphine SULFATE 4 MG/ML VIAL IVPB PRN (08:16)
[2017-10-13] MEDS ORDERED: oxyCODONE HCL 5 MG TABLET PO PRN (08:16)
[2017-10-13] MEDS ORDERED: ERTAPENEM SODIUM 1 GM/50 ML PRE-DOCKED IVPB ONE (08:22)
[2017-10-13] MEDS ORDERED: ePHEDrine SULFATE 50 MG/1 ML AMPULE ONE (08:51)
[2017-10-13] MEDS ORDERED: NEOSTIGMINE METHYLSULFATE 0.5 MG/ML - 10 ML MDV ONE (09:06)
[2017-10-13] MEDS ORDERED: PHENYLEPHRINE HCL 10 MG/1 ML SINGLE DOSE VIAL ONE (09:06)
[2017-10-13] MEDS ORDERED: DEXAMETHASONE SOD PHOSPHATE 4 MG/1 ML VIAL ONE (09:06)
[2017-10-13] MEDS ORDERED: GLYCOPYRROLATE 0.2 MG/1 ML VIAL ONE (09:06)
[2017-10-13] MEDS ORDERED: LIDOCAINE HCL/PF 2% SDV 5ML VIAL ONE (09:06)
[2017-10-13] MEDS ORDERED: LIDOCAINE HCL 2% JELLY (5 ML/TUBE) ONE (09:06)
--- NOTE | 2017-10-13 09:22 | OP ---
Operative Note - Note: Operative Date: 10/13/17 Pre-Operative Diagnosis: biliary colic, cholelithiasis Operation: laparoscopic cholecystectomy, lavage Findings: pale, thickened gb with omental adhesions and large stones Post-Operative Diagnosis: Same as Pre-op Surgeon: Emerson Law Optical Engineering Manager: Dakota Sahu Anesthesiologist/MOTOR COACH CHAUFFEUR: Kiera Anton MD Anesthesia: General Specimens Removed: gb Estimated Blood Loss (mls): 10
--- NOTE | 2017-10-13 10:03 | OP ---
DATE OF OPERATION: 10/13/2017 PREOPERATIVE DIAGNOSIS: Symptomatic cholelithiasis. POSTOPERATIVE DIAGNOSIS: Symptomatic cholelithiasis. PROCEDURE: Laparoscopic cholecystectomy and lavage. SURGEON: Emerson Law DO CUSTOMER SERVICE ADMINISTRATOR: Dakota Sahu MD ANESTHESIOLOGIST: Kiera Anton MD (general) INTRAOPERATIVE FINDINGS: A pale thickened gallbladder consistent with chronic cholecystitis. SPECIMEN: Gallbladder. DRAINS: None. BLOOD LOSS: Minimal. COMPLICATIONS: None. DISPOSITION: Recovery room in stable condition. BRIEF HISTORY: This is a 52-year-old male with previous history of symptomatic cholelithiasis who presents now for surgical management. PROCEDURE: The patient was placed in the supine position. After general anesthesia was initiated, the abdomen was prepped and draped in sterile fashion. The patient already received advance antibiotic prophylactically. Next, a transverse incision was made infraumbilical with a scalpel. It was carried through skin and subcutaneous tissue. The fascia was then lifted with Shanell clamps. Veress needle was inserted. Pneumoperitoneum was created. Next an 11-mm trocar was placed followed by insertion of a 10-mm 0-degree laparoscope. Next an additional 11-mm trocar was placed subxiphoid and two 5-mm trocars were placed in the right upper quadrant, 1 at midclavicular line, 1 at anterior axillary line. At this point, attention was turned toward the gallbladder. It was pale, thickened with omental adhesions. These were taken down sharply. The fundus was then lifted cephalad, the infundibulum retracted laterally. The peritoneal peel was dissected out, exposing a small cystic duct, cystic artery. Both were clipped and divided. The gallbladder was then liberated from the liver bed using electrocautery and hemostasis was maintained using electrocautery. At this point, the gallbladder was placed in a retrieval bag, removed through the infraumbilical trocar site after mild fascial dilatation and sent to Pathology marked as specimen. Next, a limited lavage was done and all return was clear. Trocars were then removed under direct visualization. No bleeding was seen and pneumoperitoneum was released. At this point the fascia at the infraumbilical trocar site was then closed with multiple interrupted 0 Vicryl sutures. The 4 skin incisions were closed Biosyn and Dermabond dressing was placed. Overall the patient tolerated the procedure well and there were no complications. DO ANTONIETA STROUD/[id number] MTDOctavia
[2017-10-13] MEDS: D5-1/2NS+20 MEQ KCL - 20 MEQ/1,000 ML INFUS.BAG IV SCH (16:55)
[2017-10-13] MEDS: PANTOPRAZOLE SODIUM 40 MG VIAL IVPUSH SCH ×2 (17:25→17:54)
[2017-10-14 06:49] VITALS: PULSE 62
[2017-10-14] MEDS: D5-1/2NS+20 MEQ KCL - 20 MEQ/1,000 ML INFUS.BAG IV SCH (09:39)
[2017-10-14] MEDS: PANTOPRAZOLE SODIUM 40 MG VIAL IVPUSH SCH (09:59)
[2017-10-14] MEDS ORDERED: ENOXAPARIN NA (PORCINE) 40 MG/0.4 ML DISP.SYRIN SQ SCH (10:00)
[2017-10-14 11:43] VITALS: BP 114/63
[2017-10-14 14:51] VITALS: TEMP 98.9
--- NOTE | 2017-10-14 15:29 | PN ---
Progress Note (short form) - Note Progress Note: Anesthesia postop note 52y/o M s/p GA for Laparoscopic cholecystectomy POD#1, vss, aaox3, pain well controlled No anesthesia complications.
--- NOTE | 2017-10-15 09:19 | PATH ---
Surgical Pathology Report Patient Name: BRETT LOYA [facility]. Rec. #: [id number] /Age/Gender: 1965 (Age: 52) / M Account: [id number] Location: AMBULATORY SURG Taken: 10/13/2017 Received: 10/13/2017 Reported: 10/15/2017 Physicians: Emerson Law M.D. Specimen(s) Received GALLBLADDER Clinical History Calculus gallbladder, biliary colic Final Diagnosis GALLBLADDER, CHOLECYSTECTOMY: CHRONIC CHOLECYSTITIS, CHOLESTEROLOSIS, AND CHOLELITHIASIS. BENIGN REACTIVE PERICYSTIC LYMPH NODE PRESENT. Electronically Signed Quinton Pineda M.D. Gross Description Received in formalin labelled "gallbladder" is with an attached 1.0 cm long portion of cystic duct. A possible pericystic lymph node is present. The gallbladder has a smooth shiny villagran serosa, and up to 0.4 cm thick wall, and velvety orange mucosa. The gallbladder has been partially previously opened. The gallbladder lumen contains a 2.2 cm greatest mentioned ovoid green calculus. Additional fragments of calculi are present within the gallbladder lumen. Residential Program Manager sections are submitted one cassette. [facility]/10/13/2017 [facility]/10/13/2017
== END 2017-10-14 16:51 | disposition home or self-care (01) ==
LOC: JASUSAT 06:07 → J6S 17:00 → JASUSAT 10-14 16:50
PROVIDERS: ATTEND Surgery
PROC: 0FT44ZZ Resection of Gallbladder, Percutaneous Endoscopic Approach (ICD-10-PCS; principal; 2017-10-13 08:00)
DX: K80.10 Calculus of gallbladder with chronic cholecystitis without obstruction (principal)
CPT/HCPCS: 86850; 86900; 86901; 88304-TC; 94760